=== PATIENT | male | born 1965 | race Hispanic/Latino ===

== ENCOUNTER 2020-06-11 12:14 | Outpatient (CLI) | payer BC ==
--- NOTE | 2020-06-11 12:31 | RAD ---
XR Chest Pa Lat STANDARD History: Dyspnea Comparison: Radiograph 2013 Findings: Chronic scarring right lung. No focal airspace consolidation, pneumothorax or effusion. No acute osseous abnormality. Impression: No acute intrathoracic abnormality.
== END 2020-06-11 12:15 | disposition home or self-care (01) ==
LOC: BICRAD 12:14
PROVIDERS: ATTEND Internal Medicine Pulmonary Disease
DX: R06.00 Dyspnea, unspecified (principal)
CPT/HCPCS: 71046

== ENCOUNTER 2021-06-26 08:38 | Emergency (ER) | payer BC ==
[2021-06-26] MEDS ORDERED: Cyclobenzaprine 10 MG TAB ONE (09:59)
== END 2021-06-26 12:05 | disposition home or self-care (01) ==
LOC: ERS 08:38
DX: S42.032A Displaced fracture of lateral end of left clavicle, initial encounter for closed fracture (principal); S00.03XA Contusion of scalp, initial encounter; S00.83XA Contusion of other part of head, initial encounter; M54.2 Cervicalgia; Z87.891 Personal history of nicotine dependence; V43.52XA Car driver injured in collision with other type car in traffic accident, initial encounter; Y92.410 Unspecified street and highway as the place of occurrence of the external cause
CPT/HCPCS: 70450; 72100; 72125

== ENCOUNTER 2021-07-19 07:54 | Outpatient (CLI) | payer BC ==
[2021-07-19] MEDS ORDERED: Iopamidol-370 76% 500 ML 1 ML ONE (09:40)
== END 2021-07-19 07:55 | disposition home or self-care (01) ==
LOC: BICCT 07:54
PROVIDERS: ATTEND Student in an Organized Health Care Education/Training Program
DX: R13.10 Dysphagia, unspecified (principal)
CPT/HCPCS: 70491

== ENCOUNTER 2023-08-19 13:53 | Outpatient (CLI) | payer BC | END 2023-08-19 13:54 | disposition home or self-care (01) | LOC: RAD 13:53 | PROVIDERS: ATTEND Family Medicine | DX: R06.00 Dyspnea, unspecified (principal); Q79.1 Other congenital malformations of diaphragm; M25.812 Other specified joint disorders, left shoulder; J98.4 Other disorders of lung; R91.8 Other nonspecific abnormal finding of lung field; Z98.890 Other specified postprocedural states | CPT/HCPCS: 71046 ==